=== PATIENT | female | born 1995 | race Caucasian/White ===

== ENCOUNTER 2017-04-25 13:01 | Emergency (ER) | payer MEDICAID ==
[~2017-04-25] VITALS: Ht 157.5 cm; Wt 59.0 kg
--- NOTE | 2017-04-25 13:26 | ER.PDOC ---
General Chief Complaint: Requesting Medical Care Stated Complaint: FEVER,ABDOMEN PAIN,BACK PAIN,NAUSEATED Time seen by MD: 13:19 Source: patient Exam Limitations: no limitations History of Present Illness Initial Comments abd pain Timing/Duration: 1 hour Severity/Quality: mild Associated Symptoms: back pain Allergies: Coded Allergies: No Known Allergies (Unverified , 04/25/17) Family History Significant Family History: no pertinent family hx Constitutional: denies fever Respiratory: denies cough Cardiovascular: denies chest pain Gastrointestinal: abdominal pain All Other Systems: Reviewed and Negative Physical Exam General Appearance: Anxious HEENT: PERRL/EOMI, Normal ENT Inspection, TMs Normal, Pharynx Normal Neck: Non-Tender, Full Range of Motion, Supple, Normal Inspection Respiratory: chest non-tender, lungs clear, normal breath sounds, no respiratory distress, no accessory muscle use Cardiovascular: Normal Peripheral Pulses, Regular Rate, Rhythm, No Edema, No Gallop, No JVD, No Murmur Back: Normal Inspection, No CVA Tenderness, No Vertebral Tenderness Extremities: Normal Range of Motion, Non-Tender, Normal Inspection, No Pedal Edema, No Calf Tenderness, Normal Capillary Refill, Pelvis Stable 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
[2017-04-25 14:09] LABS: BILIRUBIN,URINE NEGATIVE (NEGATIVE); UROBILINOGEN,URINE NORMAL (NEGATIVE)
[2017-04-25 14:24] LABS: APPEARANCE,URINE SLIGHTLY HAZY (CLEAR); UA COLOR YELLOW (YELLOW)
[2017-04-25 14:50] VITALS: BP 122/68
== END 2017-04-25 14:50 | disposition home or self-care (01) ==
LOC: ER 13:01
DX: N39.0 Urinary tract infection, site not specified (principal)
CPT/HCPCS: 81000; 81025; 87086; 99284